=== PATIENT | female | born 1930 | race Two or more races ===

== ENCOUNTER → 2017-04-26 | Outpatient (CLI) | payer OTHER ==
[~2017-04-26] MED LIST: ASPI-231 PO; FAMO-12 PO; METO25TA5 PO; PRAV20TA3 PO
[2017-04-26 08:35] LABS: Potassium 3.9 mmol/L (3.5-5.1)
== END | disposition home or self-care (01) ==
LOC: LAB 07:23
PROVIDERS: ATTEND Internal Medicine
DX: E78.00 Pure hypercholesterolemia, unspecified (principal)
CPT/HCPCS: 36415; 80061; 84132; 84450; 84460

== ENCOUNTER 2018-10-26 21:58 | Emergency (ER) | payer OTHER ==
[~2018-10-26] VITALS: Ht 152.4 cm; Wt 45.4 kg
[2018-10-26 23:30] LABS: Partial Thromboplastin Time 24.8 sec (23.78-33.04); Prothrombin Time 10.7 sec (9.27-12.13)
[2018-10-26] MEDS ORDERED: PANTOPRAZOLE 40 MG/10 ML VIAL IV ONE (23:30)
[2018-10-27] MEDS ORDERED: cefTRIAXone 1GM/50ML D5W 50 ML IV ONE
[2018-10-27] MEDS ORDERED: LEVOFLOXACIN 500MG 100 ML IV ONE
[2018-10-27 00:03] LABS: Urine Bacteria MANY /hpf (None Seen); Urine Blood 2+ /uL (Negative); Urine Mucus MANY (None Seen); Urine WBC 239 /hpf (0 - 5)
[2018-10-27 02:12] LABS: Basophils # (auto) 0 uL; Basophils % (auto) 0.1 % (0.0-2.0); Eosinophils # (auto) 0 uL; Hematocrit 43.6 % (36.0-46.0); Lymphocytes # (auto) 0.6 uL; Lymphocytes % (auto) 4.3 % (10.0-50.0); Mean Corpuscular Hemoglobin 27.6 pg (28.0-32.0); Mean Corpuscular Hgb Conc. 32.1 g/dL (32.0-36.0); Mean Corpuscular Volume 85.9 fL (80.0-100.0); Monocytes # (auto) 1.3 uL; Neutrophils # (auto) 11.4 uL; Neutrophils % (auto) 85.6 % (37.0-80.0); Platelet Count (auto) 192 10^3/uL (140-450); Red Blood Cells 5.08 10^6/uL (4.0-5.20); Red Cell Distribution Width 15.3 % (11.8-14.3); White Blood Cell 13.3 10^3/uL (4.4-10.8)
[2018-10-27 02:35] LABS: Lactic Acid w/Reflex 2.6 mmol/L (0.4-2.0)
[2018-10-27 02:59] LABS: Anion Gap 15 (5-15); BUN/Creatinine Ratio 18.2; Blood Urea Nitrogen 16 mg/dL (7-18); Carbon Dioxide 18 mmol/L (21-32); Chloride 105 mmol/L (98-107); GFR African American 78 mL/min; GFR Non-African American 65 mL/min; Glucose 117 mg/dL (74-106); Potassium 3.7 mmol/L (3.5-5.1); Sodium 138 mmol/L (136-145)
[2018-10-27 03:00] LABS: Alanine Aminotransferase 17 U/L (13-56); Albumin 3.8 g/dL (3.4-5.0); Alkaline Phosphatase 74 U/L (45-117); Aspartate Aminotransferase 19 U/L (15-37); Bilirubin, Total 0.8 mg/dL (0.2-1.0); Calcium 9.6 mg/dL (8.5-10.1); Magnesium 2.5 mg/dL (1.6-2.6); Total Protein 8.5 g/dL (6.4-8.2)
[2018-10-27] MEDS ORDERED: HYDROcodone-ACET 5/325MG TAB PO PRN (04:45)
[2018-10-27] MEDS ORDERED: DOCUSATE SOD 100 MG CAP PO PRN (04:45)
[2018-10-27] MEDS ORDERED: TEMAZEPAM 15 MG CAP PO PRN (04:45)
[2018-10-27] MEDS ORDERED: ACETAMINOPHEN 325 MG TAB PO PRN (04:45)
[2018-10-27] MEDS ORDERED: ASPirin 81 mg TAB PO SCH (10:00)
[2018-10-27] MEDS ORDERED: METOPROLOL TARTRATE 25 MG TAB PO SCH ×2 (10:00→22:00)
[2018-10-27] MEDS ORDERED: ENOXAPARIN SOD 40 MG/0.4 ML SYRINGE SC SCH (10:00)
[2018-10-27] MEDS ORDERED: LEVOFLOXACIN 500MG 100 ML IV SCH (10:00)
[2018-10-27] MEDS ORDERED: FAMOTIDINE 20 MG TAB PO SCH ×2 (10:00)
[2018-10-27] MEDS ORDERED: cloNIDine HCL 0.1 MG TAB PO ONE (12:15)
[2018-10-27] MEDS ORDERED: cloNIDine HCL 0.1 MG TAB PO PRN (14:15)
[2018-10-27] MEDS ORDERED: SODIUM CHLORIDE 0.9% 1,000 ML IV SCH (14:15)
[2018-10-27] MEDS ORDERED: SODIUM CHLORIDE 0.9% 1,000 ML IV ONE (14:30)
[2018-10-27 16:05] VITALS: BP 125/63
[2018-10-27] MEDS ORDERED: LEVOFLOXACIN 250MG 50 ML IV SCH (21:00)
[2018-10-27] MEDS ORDERED: PRAVASTATIN SODIUM 20 MG TAB PO SCH (22:00)
[2018-10-28] MEDS ORDERED: PATIENTS OWN MEDICATION (xarelto 20 MG) PO SCH (10:00)
== END 2018-10-27 16:16 | disposition short-term general hospital (02) ==
LOC: EDUNIT# 21:58 → EDBD 21:58 → ER 22:08 → OVERFLOW 10-27 06:01 → UNDOADMIN 10-27 06:01 → ER 10-27 16:16
DX: R41.82 Altered mental status, unspecified (principal); N39.0 Urinary tract infection, site not specified; D72.829 Elevated white blood cell count, unspecified; E86.0 Dehydration; R11.10 Vomiting, unspecified; I10 Essential (primary) hypertension; E78.5 Hyperlipidemia, unspecified; Z88.2 Allergy status to sulfonamides; Z88.3 Allergy status to other anti-infective agents; Z88.8 Allergy status to other drugs, medicaments and biological substances
CPT/HCPCS: 36415; 51701; 70450; 71045; 80053; 81001; 82140; 83605; 83735; 84484; 85025; 85610; 85730; 87040; 87086; 94761; 96361; 96365; 96368; 96372; 96375; 99285; C9113; J0696; J1650; J1956; J7030; 87077; 87186